=== PATIENT | female | born 1935 | race American Indian/Alaskan Native ===

== ENCOUNTER 2024-05-14 16:40 | Inpatient (IN) | payer OTHER, MEDICAID ==
[~2024-05-14] VITALS: Ht 152.4 cm; Wt 45.1 kg
[2024-05-14 16:58] VITALS: BP_SYST 131; PULSE 64; RESP 16; TEMP 96.9; O2SAT 100
[2024-05-14 19:33] LABS: BASOPHILS % (AUTO) 0.3 % (0.0-2.0); EOSINOPHILS # (AUTO) 0.1 K/uL (0.0-0.4); EOSINOPHILS % (AUTO) 2.1 % (0.0-4.0); HEMATOCRIT 28.4 % (36-48); HEMOGLOBIN 9.8 g/dL (12.0-16.0); LYMPHOCYTES # (AUTO) 1.2 K/uL (1.0-5.5); MEAN CORPUSCULAR HEMOGLOBIN 33 pg (27-31); MEAN CORPUSCULAR HGB CONC 34 % (32-36); MEAN CORPUSCULAR VOLUME 95 fL (79.0-98.0); MONOCYTES # (AUTO) 0.6 K/uL (0.0-1.0); MONOCYTES % (AUTO) 10.6 % (1.7-9.3); NEUTROPHILS # (AUTO) 3.4 K/uL (1.8-7.7); PLATELET COUNT (AUTO) 414 K/uL (130-430); RED BLOOD CELL COUNT(AUTO) 3.01 MIL/uL (4.2-6.2); WHITE BLOOD COUNT (AUTO) 5.2 K/uL (4.8-10.8)
[2024-05-14 19:40] LABS: ANION GAP 5 (5-15); CARBON DIOXIDE 33 mmol/L (23-29); CHLORIDE 98 mmol/L (98-107); CREATININE 0.66 mg/dL (0.55-1.30); GLUCOSE 283 mg/dL (74-106); POTASSIUM 5.3 mmol/L (3.5-5.1); SODIUM SERUM 136 mmol/L (136-145); UREA NITROGEN, BLOOD 18 mg/dL (8-21)
[2024-05-14] MEDS ORDERED: DOCU-144 PO (20:15)
[2024-05-14] MEDS ORDERED: METO25TA6 PO (20:24)
[2024-05-14] MEDS ORDERED: BREX0.5T PO (20:24)
[2024-05-14] MEDS ORDERED: IBUP-1970 PO (20:24)
[2024-05-14] MEDS ORDERED: LOSA-415 PO (20:24)
[2024-05-14] MEDS ORDERED: DONE10TA44 PO (20:24)
[2024-05-14] MEDS ORDERED: FOLI-43 PO (20:24)
[2024-05-14] MEDS ORDERED: OMEP20CA15 PO (20:24)
[2024-05-14] MEDS ORDERED: FER300L PO (20:24)
[2024-05-14] MEDS ORDERED: SITA100T11 PO (20:24)
[2024-05-14] MEDS ORDERED: GABA-529 PO (20:24)
[2024-05-14] MEDS ORDERED: ESCI20TA PO (20:24)
[2024-05-14] MEDS ORDERED: METF-379 PO (20:24)
[2024-05-14] MEDS ORDERED: INSU100V SUBCUT (20:24)
[2024-05-14] MEDS ORDERED: MELA1LIQ PO (20:24)
[2024-05-14] MEDS ORDERED: MAGN400T10 PO (20:24)
[2024-05-14] MEDS ORDERED: MEMA14CA PO (20:24)
[2024-05-14] MEDS ORDERED: HYDR-3917 PO (20:24)
[2024-05-14] MEDS: HYDROcodone/ACETAMIN 5-325 MG TAB (NORCO/ VICODIN) PO ONE (22:06)
[2024-05-14] MEDS ORDERED: NALOXONE HCL 0.4 MG/ML AMP (NARCAN) IVP PRN (22:15)
[2024-05-15] VITALS: BP_SYST 119; PULSE 63; RESP 16; TEMP 96.8; O2SAT 96
[2024-05-15 00:24] VITALS: BP_SYST 119; PULSE 63; RESP 16; TEMP 96.8; O2SAT 96
[2024-05-15] MEDS: HYDROcodone/ACETAMIN 5-325 MG TAB (NORCO/ VICODIN) PO PRN (01:14)
[2024-05-15] MEDS: INSULIN REGULAR, HUMAN 100 UNITS/ML, 3 ML VIAL (humuLIN R) SUBCUT PRN (06:24)
[2024-05-15 07:08] LABS: BASOPHILS % (AUTO) 0.8 % (0.0-2.0); EOSINOPHILS # (AUTO) 0.2 K/uL (0.0-0.4); EOSINOPHILS % (AUTO) 3.8 % (0.0-4.0); HEMATOCRIT 29.3 % (36-48); HEMOGLOBIN 9.6 g/dL (12.0-16.0); LYMPHOCYTES # (AUTO) 1.4 K/uL (1.0-5.5); LYMPHOCYTES % (AUTO) 32.1 % (20.5-51.5); MEAN CORPUSCULAR HEMOGLOBIN 31 pg (27-31); MEAN CORPUSCULAR HGB CONC 33 % (32-36); MEAN CORPUSCULAR VOLUME 95 fL (79.0-98.0); MONOCYTES # (AUTO) 0.5 K/uL (0.0-1.0); MONOCYTES % (AUTO) 11.6 % (1.7-9.3); NEUTROPHILS # (AUTO) 2.3 K/uL (1.8-7.7); NEUTROPHILS % (AUTO) 51.7 % (40.0-70.0); PLATELET COUNT (AUTO) 415 K/uL (130-430); RED BLOOD CELL COUNT(AUTO) 3.08 MIL/uL (4.2-6.2); RED CELL DISTRIBUTION WIDTH 14.2 % (9.0-15.0); WHITE BLOOD COUNT (AUTO) 4.4 K/uL (4.8-10.8)
[2024-05-15 07:16] LABS: ANION GAP 5 (5-15); CALCIUM 8.8 mg/dL (8.4-11.0); CARBON DIOXIDE 32 mmol/L (23-29); CHLORIDE 99 mmol/L (98-107); GLUCOSE 212 mg/dL (74-106); POTASSIUM 4.3 mmol/L (3.5-5.1); SODIUM SERUM 136 mmol/L (136-145); UREA NITROGEN, BLOOD 15 mg/dL (8-21)
[2024-05-15 08:00] VITALS: BP_SYST 157; PULSE 61; RESP 14; TEMP 97.2; O2SAT 98
[2024-05-15] MEDS ORDERED: OMEPRAZOLE Non-Formulary 20 MG CAPSULE.DR PO SCH (09:00)
[2024-05-15] MEDS ORDERED: MEMANTINE HCL 7 MG CAP.SPR.24 PO SCH (09:00)
[2024-05-15] MEDS ORDERED: NON-FORMULARY MEDICATION (Brexpiprazole (Rexulti) 1 TAB) PO SCH (09:00)
[2024-05-15] MEDS ORDERED: ESCITALOPRAM OXALATE 10 MG TABLET PO SCH (09:00)
[2024-05-15] MEDS: MAGNESIUM OXIDE 400 MG TABLET PO SCH (09:37)
[2024-05-15] MEDS: FERROUS SULFATE 300 MG/5 ML UDC PO SCH (09:37)
[2024-05-15] MEDS: CITALOPRAM HYDROBROMIDE 20 MG TABLET PO SCH (09:38)
[2024-05-15] MEDS: PANTOPRAZOLE SODIUM 40 MG TAB PO SCH (09:38)
[2024-05-15] MEDS: DOCUSATE SODIUM 100 MG CAPSULE PO SCH (09:38)
[2024-05-15] MEDS: METOPROLOL TARTRATE 25 MG TABLET PO SCH (09:38)
[2024-05-15] MEDS: FOLIC ACID 1 MG TABLET PO SCH (09:38)
[2024-05-15] MEDS: MEMANTINE HCL 5 MG TABLET PO SCH (09:38)
[2024-05-15] MEDS: GABAPENTIN 100 MG CAPSULE PO SCH (09:38)
[2024-05-15] MEDS: metFORMIN HCL 500 MG TABLET PO SCH (09:39)
[2024-05-15 11:49] VITALS: BP_SYST 128; PULSE 62; RESP 18; TEMP 97.5; O2SAT 99
[2024-05-15] MEDS: IBUPROFEN 800 MG TABLET PO PRN (14:58)
[2024-05-15] MEDS: MAGNESIUM SULFATE IN WATER 100 ML IV ONE (15:41)
[2024-05-15 17:36] VITALS: BP_SYST 131; PULSE 60; RESP 18; TEMP 97.1; O2SAT 97
[2024-05-15 18:10] VITALS: BP_SYST 116; PULSE 61; RESP 18; TEMP 97.4; O2SAT 97
[2024-05-15] MEDS ORDERED: MELATONIN 3 MG TABLET PO SCH (21:00)
[2024-05-15] MEDS ORDERED: DONEPEZIL HCL 5 MG TABLET (ARICEPT) PO SCH (21:00)
[2024-05-15] MEDS ORDERED: ENOXAPARIN SODIUM 30 MG/0.3 ML SYRINGE SUBCUT SCH (21:00)
== END 2024-05-15 20:20 | DRG 561 ==
LOC: SED 16:40 → SMU 19:53
PROVIDERS: ADMIT Family Medicine; ATTEND Family Medicine
DX: T84.020A Dislocation of internal right hip prosthesis, initial encounter (principal); I10 Essential (primary) hypertension; E11.9 Type 2 diabetes mellitus without complications; M81.0 Age-related osteoporosis without current pathological fracture; Y79.2 Prosthetic and other implants, materials and accessory orthopedic devices associated with adverse incidents; F03.90 Unspecified dementia, unspecified severity, without behavioral disturbance, psychotic disturbance, mood disturbance, and anxiety; Z74.01 Bed confinement status; Z79.899 Other long term (current) drug therapy
CPT/HCPCS: 36415; 71045; 73502; 80048; 82948; 83735; 85025; 87081; 93005; 99285; J3475